=== PATIENT | female | born 1950 | race Caucasian/White ===

== ENCOUNTER → 2016-05-16 | Outpatient (CLI) | payer BC, MEDICARE | END | disposition home or self-care (01) | LOC: PCVCCLINIC 11:00 | PROVIDERS: ATTEND Internal Medicine | DX: R05 Cough (principal); R60.9 Edema, unspecified | CPT/HCPCS: 93005; G0463 ==

== ENCOUNTER → 2016-05-27 | Outpatient (CLI) | payer BC, MEDICARE ==
[~2016-05-27] MED LIST: IODIXANOL 270 MG/ML 100 ML VIAL. ONE; IV NORMAL SALINE 500ML BAG 0 ML ONE; LIDOCAINE 1% Multi-Dose 20 ML VIAL. ONE
== END | disposition home or self-care (01) ==
LOC: PCVCIMAG 13:13
PROVIDERS: ATTEND Internal Medicine
DX: R06.00 Dyspnea, unspecified (principal); I07.1 Rheumatic tricuspid insufficiency; R60.9 Edema, unspecified
CPT/HCPCS: 93306; J7040